=== PATIENT | female | born 1980 | race Caucasian/White ===

== ENCOUNTER → 2016-08-21 | Outpatient (CLI) | payer OTHER ==
[~2016-08-21] VITALS: Ht 167.6 cm; Wt 61.2 kg
[~2016-08-21] MED LIST: ASACOL HD800 MG PO; IBUPROFEN800 MG PO; PLAQUENIL 200200 MG PO; SUBOXONE 8 MG-1 EACH SL
[2016-08-21 12:17] LABS: HEMOGLOBIN 12.1 gm/dl (12.3-15.3); RED BLOOD COUNT 4.68 M/UL (4.00-5.10)
[2016-08-21 12:50] LABS: BUN/CREATININE RATIO 20 (0-10)
== END ==
LOC: OPSV 08-18 13:00
PROVIDERS: Physician Assistant
DX: K51.90 Ulcerative colitis, unspecified, without complications (principal); B18.2 Chronic viral hepatitis C; K12.1 Other forms of stomatitis; R63.4 Abnormal weight loss; E55.9 Vitamin D deficiency, unspecified; Z87.891 Personal history of nicotine dependence; Z87.898 Personal history of other specified conditions
CPT/HCPCS: 36415; 80053; 85025; 86140; 96365; J3380; J7030

== ENCOUNTER → 2020-03-27 | Outpatient (CLI) | payer OTHER ==
[~2020-03-27] VITALS: Ht 167.6 cm; Wt 61.2 kg
[2020-03-27 15:05] LABS: HEMOGLOBIN 8.3 gm/dl (12.3-15.3); RED BLOOD COUNT 4.68 M/UL (4.00-5.10)
[2020-03-27 15:39] LABS: BUN/CREATININE RATIO 15 (0-10)
== END ==
LOC: OPSV 12:00
PROVIDERS: Internal Medicine Gastroenterology
DX: K51.90 Ulcerative colitis, unspecified, without complications (principal)
CPT/HCPCS: 36415; 80053; 85027; 86140; 96365; J3380; J7050

== ENCOUNTER → 2020-05-08 | Outpatient (CLI) | payer OTHER ==
[2020-05-08 13:57] LABS: HEMOGLOBIN 7.3 gm/dl (12.3-15.3); RED BLOOD COUNT 4.22 M/UL (4.00-5.10); WHITE BLOOD COUNT 8.8 K/UL (4.5-11.0)
[2020-05-08 14:43] LABS: BUN/CREATININE RATIO 13 (0-10)
== END ==
LOC: OPSV 12:00
DX: K51.90 Ulcerative colitis, unspecified, without complications (principal)
CPT/HCPCS: 36415; 80053; 85027; 86140; 96365; J3380; J7030